=== PATIENT | female | born 1980 | race Caucasian/White ===

== ENCOUNTER 2020-03-09 18:57 | Emergency (ER) | payer MEDICAID ==
[~2020-03-09] VITALS: Ht 162.6 cm; Wt 82.2 kg
[2020-03-09] MEDS ORDERED: ONDANSETRON ODT 8 MG PO ONE (21:00)
[2020-03-09] MEDS ORDERED: SODIUM CHLORIDE FLUSH 10ML SYR IVF ONE (21:00)
--- NOTE | 2020-03-09 21:50 | NUR ---
PT TO TRIAGE FOR VS RECHECK, PT STATED " I'M GOING HOME IF MY VITAL SIGNS ARE FINE". PA UPDATED PT WANTS TO LEAVE, PA AT PT'S SIDE FOR RECHECK. PT AGREES TO WAIT FOR SCANS. PT MEDICATED PER MAR
[2020-03-09] MEDS ORDERED: ONDANSETRON ODT 8 MG ONE (21:53)
--- NOTE | 2020-03-09 22:18 | NUR ---
First contact with patient: Patient presents to ER c/o after an episode today of a maycol horse which went from her left ear down her neck and into her left shoulder. She had numbness/tingling in her left arm into her shoulder and fingertips. She states her neck veins became hard. Patient states the episode was around approx 1720. Patient has had this happen once in the past. Patient states she currently has weakness in her left arm. Patient is in NAD. Respirations even and unlabored.
[2020-03-09 22:25] LABS: BASOPHILS # (AUTO) 0.04 x10^3/uL (0-0.1); BASOPHILS % (AUTO) 0 % (0-1); EOSINOPHILS # (AUTO) 0.06 x10^3/uL (0-0.4); EOSINOPHILS % (AUTO) 1 % (1-7); LYMPHOCYTES # (AUTO) 2.98 x10^3/uL (1-3.4); LYMPHOCYTES % (AUTO) 33 % (22-44); MD NO; MEAN CORPUSCULAR HEMOGLOBIN 31.1 pg (27.0-34.8); MEAN CORPUSCULAR HGB CONC 33.4 g/dL (32.4-35.8); MEAN CORPUSCULAR VOLUME 93.1 fL (80-100); MEAN PLATELET VOLUME 8.6 fL (7.4-10.4); MONOCYTES % (AUTO) 7 % (2-9); NEUTROPHILS # (AUTO) 5.32 x10^3/uL (1.8-6.8); NEUTROPHILS % (AUTO) 59 % (42-75); PLATELET COUNT 292 x10^3/uL (130-400); RED BLOOD COUNT 4.38 x10^6/uL (3.82-5.3); RED CELL DISTRIBUTION WIDTH 12.7 % (9.6-15.2)
[2020-03-09 22:26] VITALS: BP 112/65
[2020-03-09] MEDS ORDERED: LISI-170 PO (22:26)
[2020-03-09 22:35] LABS: ALANINE AMINOTRANSFERASE 29 U/L (12-78); ALBUMIN 4.2 g/dL (3.4-5.0); ANION GAP 6 mmol/L (5-15); CALCIUM 9.1 mg/dL (8.5-10.1); CHLORIDE 108 mmol/L (98-107); CREATININE 0.83 mg/dL (0.55-1.02)
[2020-03-09 22:39] LABS: ALKALINE PHOSPHATASE 63 U/L (45-117); BILIRUBIN,TOTAL 0.5 mg/dL (0.2-1.0); TOTAL PROTEIN 8.1 g/dL (6.4-8.2); TROPONIN I < 0.015 ng/mL (0.000-0.045)
[2020-03-09] MEDS ORDERED: OMNIPAQUE 350 MG/ML, 75ML BOTTLE ONE (23:07)
--- NOTE | 2020-03-09 23:57 | NUR ---
Discharge instructions given. All questions and concerns addressed. Patient ambulatory with a steady gait. Belongings with patient.
== END 2020-03-09 23:58 | disposition home or self-care (01) ==
LOC: ED 22:44
DX: M54.2 Cervicalgia (principal); R53.1 Weakness; R51 Headache; R11.0 Nausea; R42 Dizziness and giddiness; R07.89 Other chest pain; Z90.710 Acquired absence of both cervix and uterus
CPT/HCPCS: 36415; 70450; 70496; 70498; 71046; 80053; 84484; 84703; 85025; 93005; 99285; Q0162; Q9967